=== PATIENT | male | born 1980 | race Caucasian/White ===

== ENCOUNTER 2023-12-09 06:12 | Day surgery (SDC) | payer OTHER, SELFPAY ==
[2023-12-09 06:10] VITALS: BMI 28.1
[2023-12-09 06:20] VITALS: BP 118/80
[2023-12-09] MEDS: TYLENOL 1000 MG PO (06:32)
[2023-12-09 06:34] VITALS: BMI 28.1
[2023-12-09] MEDS: NORMOSOL-R 1000 IV (06:47)
[2023-12-09 08:36] VITALS: BP 99/63
[2023-12-09 08:45] VITALS: BP 88/48
[2023-12-09 08:49] VITALS: BP 92/53
[2023-12-09 09:00] VITALS: BP 94/57
[2023-12-09 09:15] VITALS: BP 97/63
== END 2023-12-09 09:35 | disposition home or self-care (01) ==
LOC: SDS 06:12
PROVIDERS: ATTENDING PHYSICIAN Surgery
DX: L05.91 Pilonidal cyst without abscess (principal); Z87.19 Personal history of other diseases of the digestive system; Z98.890 Other specified postprocedural states
CPT/HCPCS: 11771